=== PATIENT | male | born 1965 | race Caucasian/White ===

== ENCOUNTER 2021-06-09 09:18 | Inpatient (IN) | payer BC ==
[~2021-06-09] VITALS: Ht 210.8 cm; Wt 143.2 kg
[2021-06-09 11:17] LABS: BASOPHILS % (AUTO) 0.3 % (0-1); EOSINOPHILS # (AUTO) 0.3 X10'3 (0-0.9); HEMATOCRIT 47.3 % (42.0-52.0); HEMOGLOBIN 16.2 g/dl (14.0-17.9); LYMPHOCYTES # (AUTO) 1.7 X10'3 (1.1-4.8); MEAN CORPUSCULAR HGB CONC 34.2 g/dL (33.0-36.5); MEAN CORPUSCULAR VOLUME 93.4 FL (78-98); MEAN PLATELET VOLUME 9.4 FL (7.4-10.4); MONOCYTES # (AUTO) 1.5 X10'3 (0-0.9); MONOCYTES % (AUTO) 9.7 % (2-12); NEUTROPHILS # (AUTO) 11.8 X10'3 (1.8-7.7); PLATELET COUNT 234 X10'3 (140-440); RED BLOOD COUNT 5.07 X10'6 (4.70-6.10); RED CELL DISTRIBUTION WIDTH 13.1 % (11.5-14.5); WHITE BLOOD COUNT 15.3 X10'3 (4.5-11.0)
[2021-06-09 11:34] LABS: GLUCOSE, URINE NEGATIVE (Neg); KETONES,URINE 40 mg/dl (Neg); LEUKOCYTE ESTERASE ,URINE NEGATIVE (Neg); NITRITES, URINE NEGATIVE (Neg); OCCULT BLOOD,URINE LARGE (Neg); PROTEIN,URINE NEGATIVE (Neg); UROBILINOGEN,URINE 0.2 E.U/dL (0.2-1.0)
[2021-06-09 11:37] LABS: CLARITY,URINE SLIGHTLY CLOUDY (Clear); COLOR,URINE DARK YELLOW (Yellow); UA COLLECTION TYPE NON-SPECIFIED
[2021-06-09 11:40] LABS: BACTERIA,URINE FEW /HPF (Neg); COARSE GRANULAR CAST 0-3 /LPF (NEGATIVE); MUCUS STRANDS NONE SEEN /LPF (Neg); RBC,URINE 20-50 /HPF (0-2); RENAL CELLS, URINE FEW /HPF; SQUAMOUS EPITHELIAL CELL,UR NONE SEEN /LPF (FEW)
[2021-06-09 11:45] LABS: ALANINE AMINOTRANSFERASE 33 U/L (12-78); ALBUMIN 3.8 G/DL (3.4-5.0); ALBUMIN/GLOBULIN RATIO 0.8 (1.1-1.5); ALKALINE PHOSPHATASE 107 IU/L (46-116); ANION GAP 15 (8-16); ASPARTATE AMINO TRANSFERASE 35 U/L (10-37); BILIRUBIN,TOTAL 0.5 MG/DL (0.1-1.0); BLOOD UREA NITROGEN 12 MG/DL (7-18); BUN/CREATININE RATIO 11.9 (5.4-32.0); CALCIUM 9.5 MG/DL (8.5-10.1); CHLORIDE 103 MMOL/L (99-107); CREATININE 1.01 MG/DL (0.60-1.10); GLUCOSE 100 MG/DL (70-104); POTASSIUM 3.4 MMOL/L (3.5-5.1); SODIUM 142 MMOL/L (135-145); TOTAL CARBON DIOXIDE 23.8 MMOL/L (24-32); TOTAL PROTEIN 8.5 G/DL (6.4-8.2); eGFR 77 ML/MIN
[2021-06-09] MEDS ORDERED: normal saline 1000ML IV soln IVB ONE (13:45)
[2021-06-09] MEDS ORDERED: CefTRIAXone 2gm/D5W 50ml BAG 50 ML IV ONE (14:00)
[2021-06-09] MEDS ORDERED: magnesium Cl slow-release 64mg tablet PO PRN (16:10)
[2021-06-09] MEDS ORDERED: HYDROcodone/acetaminophen 10/325mg tab PO PRN (16:10)
[2021-06-09] MEDS ORDERED: acetaminophen 325mg tablet PO PRN ×2 (16:10)
[2021-06-09] MEDS ORDERED: potassium Cl 20 mEq SR tablet PO PRN ×2 (16:10)
[2021-06-09] MEDS ORDERED: potassium CL 10mEq/100ml bag 100 ML IV PRN (16:10)
[2021-06-09] MEDS ORDERED: magnesium 4gm in 100ml NS 100 ML IV PRN (16:10)
[2021-06-09] MEDS ORDERED: ondansetron/PF 4mg/2ml inj IV PRN (16:10)
[2021-06-09] MEDS ORDERED: morphine 2 MG/ML inj. syringe IV PRN ×2 (16:10)
[2021-06-09] MEDS ORDERED: mag hydrox/Alum hydrox/simeth 30ml oral suspension PO PRN (16:10)
[2021-06-09] MEDS ORDERED: magnesium 2GM in 50ml NS 50 ML IV PRN (16:10)
[2021-06-09] MEDS ORDERED: HYDROcodone/acetaminophen 5mg/325mg tablet PO PRN (16:10)
[2021-06-09] MEDS ORDERED: FLO0.4C PO (16:48)
[2021-06-09] MEDS ORDERED: CALC-723 PO (16:48)
[2021-06-09] MEDS ORDERED: CIPR-259 PO (16:48)
[2021-06-09] MEDS ORDERED: MULT-1085 PO (16:48)
[2021-06-09] MEDS: normal saline 1000ml 1,000 ML IV SCH (17:47)
--- NOTE | 2021-06-09 18:12 | NUR ---
Gave report to Ifeanyi ESTEVES.
[2021-06-09 20:00] VITALS: BP 148/51
[2021-06-09] MEDS: docusate sod 100mg capsule PO SCH (20:00)
[2021-06-09] MEDS: heparin, porcine 5000 units/ml vial SQ SCH (20:45)
[2021-06-09] MEDS: K and/or MAG REPLACEMENT MC SCH (20:53)
[2021-06-09] MEDS ORDERED: tamsulosin 0.4mg capsule PO SCH (21:00)
[2021-06-09] MEDS ORDERED: temazepam 15mg capsule PO PRN (21:00)
[2021-06-09] MEDS ORDERED: benzonatate 100mg capsule PO PRN (22:00)
[2021-06-10] VITALS: BP 118/86
[2021-06-10] MEDS: normal saline 1000ml 1,000 ML IV SCH ×2 (00:10→08:10)
[2021-06-10] MEDS ORDERED: aspirin/acetaminophen/caffeine tablet PO PRN (00:55)
[2021-06-10 06:27] LABS: BASOPHILS % (AUTO) 0.5 % (0-1); EOSINOPHILS # (AUTO) 0.4 X10'3 (0-0.9); EOSINOPHILS % (AUTO) 4.2 % (0-6); HEMATOCRIT 39.7 % (42.0-52.0); HEMOGLOBIN 13.8 g/dl (14.0-17.9); LYMPHOCYTES # (AUTO) 1.6 X10'3 (1.1-4.8); MEAN CORPUSCULAR HEMOGLOBIN 32.2 PG (27.0-31.0); MEAN CORPUSCULAR HGB CONC 34.7 g/dL (33.0-36.5); MEAN CORPUSCULAR VOLUME 92.8 FL (78-98); MEAN PLATELET VOLUME 9.3 FL (7.4-10.4); MONOCYTES # (AUTO) 1.1 X10'3 (0-0.9); MONOCYTES % (AUTO) 11.2 % (2-12); NEUTROPHILS # (AUTO) 6.7 X10'3 (1.8-7.7); NEUTROPHILS % (AUTO) 68.1 % (42-75); PLATELET COUNT 217 X10'3 (140-440); RED BLOOD COUNT 4.28 X10'6 (4.70-6.10); RED CELL DISTRIBUTION WIDTH 13.4 % (11.5-14.5); WHITE BLOOD COUNT 9.8 X10'3 (4.5-11.0)
[2021-06-10 06:41] LABS: ALANINE AMINOTRANSFERASE 28 U/L (12-78); ALBUMIN 2.8 G/DL (3.4-5.0); ALBUMIN/GLOBULIN RATIO 0.8 (1.1-1.5); ALKALINE PHOSPHATASE 84 IU/L (46-116); ANION GAP 11 (8-16); ASPARTATE AMINO TRANSFERASE 27 U/L (10-37); BILIRUBIN,TOTAL 0.4 MG/DL (0.1-1.0); BLOOD UREA NITROGEN 11 MG/DL (7-18); BUN/CREATININE RATIO 12.4 (5.4-32.0); CALCIUM 8.4 MG/DL (8.5-10.1); CHLORIDE 107 MMOL/L (99-107); CREATININE 0.89 MG/DL (0.60-1.10); GLUCOSE 91 MG/DL (70-104); POTASSIUM 3.5 MMOL/L (3.5-5.1); SODIUM 142 MMOL/L (135-145); TOTAL PROTEIN 6.3 G/DL (6.4-8.2); eGFR 89 ML/MIN
[2021-06-10 08:00] VITALS: BP_SYST 113; BP_SYST 98; BP_DIAS 61; BP_DIAS 62
[2021-06-10] MEDS ORDERED: CefTRIAXone 2gm/D5W 50ml BAG 50 ML IV SCH (08:00)
[2021-06-10] MEDS: K and/or MAG REPLACEMENT MC SCH (08:00)
[2021-06-10] MEDS: heparin, porcine 5000 units/ml vial SQ SCH (09:31)
[2021-06-10] MEDS: docusate sod 100mg capsule PO SCH (09:32)
[2021-06-10 11:00] VITALS: BP 117/70
[2021-06-10] MEDS ORDERED: LEVO500T90 PO (11:13)
[2021-06-10] MEDS ORDERED: BENZ-38 PO (11:14)
[2021-06-10] MEDS ORDERED: ALBU8.5H17 IH (11:14)
--- NOTE | 2021-06-10 12:00 | NUR ---
Pt discharged home with and will f/u with Dr Zuniga and pcp. IV dc'd, all belongings taken from room. Meds called into [facility]. Pt states understanding of discharge plan and follow up. Patient appears appropriate for discharge.
== END 2021-06-10 12:00 | disposition home or self-care (01) | DRG 872 ==
LOC: ER 09:19 → ED HOLD 16:13 → SUR 3N 17:26
PROVIDERS: ADMIT Internal Medicine; ATTEND Internal Medicine
DX: A41.9 Sepsis, unspecified organism (principal); N41.0 Acute prostatitis; Z20.822 Contact with and (suspected) exposure to COVID-19; R31.9 Hematuria, unspecified; Z87.442 Personal history of urinary calculi; Z98.84 Bariatric surgery status
CPT/HCPCS: 36415; 71045; 74176; 80053; 81001; 83605; 84145; 84153; 84154; 85025; 87040; 87081; 87088; 87635; 96361; 96365; 99285; C9803; G0378; J0696; J1644; J7030